=== PATIENT | male | born 1980 | race Caucasian/White ===

== ENCOUNTER 2024-02-25 08:46 | Emergency (ER) | payer OTHER ==
--- NOTE | 2024-02-25 08:48 | ERPHSYRPT ---
- History of Present Illness Time Seen by Provider: 02/25/24 08:48 Source: patient Exam Limitations: no limitations Physician History: This is a 43-year-old white male patient who presents to the emergency department with complaint of right flank pain with radiation down into his right testicle. Patient stated he felt fine last evening and also felt fine this morning. The sensation of nausea came over him when the pain issues occurred. He has never felt anything like this before. He denies chest pain. He denies shortness of breath. Patient does not take medications chronically and he has no known drug allergies. He feels like he has to urinate but was unable to do so. Timing/Duration: today Severity: moderate Character of Deficits: none Baseline/Normal Cognition: alert oriented x 3 Current Cognition: alert oriented x 3 Associated Symptoms: denies symptoms, other (He denies dizziness when I evaluated him. It is more of a nausea feeling associated with the pain) Allergies/Adverse Reactions: No Known Drug Allergies Allergy (Verified 02/25/24 08:56) Travel Risk - International Travel Have you traveled outside of the country in past 3 weeks: No - Emerging Infectious Disease Are you exhibiting symptoms associated with any current EIDs: No - Review of Systems Constitutional: No Symptoms Eyes: No Symptoms Ears, Nose, & Throat: No Symptoms Respiratory: No Symptoms Cardiac: No Symptoms Abdominal/Gastrointestinal: Nausea, Appetite Changes, No Abdominal Pain, No Vomiting, No Diarrhea Genitourinary Symptoms: No Symptoms, Flank Pain (Right), Testicle Pain (Right), Other (Difficulty urinating) Musculoskeletal: No Symptoms Skin: No Symptoms Neurological: Irritability Psychological: No Symptoms Endocrine: No Symptoms Hematologic/Lymphatic: No Symptoms Immunological/Allergic: No Symptoms All Other Systems: Reviewed and Negative - Past Medical History Pertinent Past Medical History: No - Nursing Vital Signs Nursing Vital Signs: Initial Vital Signs Temperature 97.1 F 02/25/24 08:51 Pulse Rate 59 L 02/25/24 08:51 Respiratory Rate 20 02/25/24 08:51 Blood Pressure 122/83 02/25/24 08:51 O2 Sat by Pulse Oximetry 100 02/25/24 08:51 Pain Scale Pain Intensity 0 - Tom Coma Scale Best Eye Response ([place]): (4) open spontaneously Best Verbal Response ([place]): (5) oriented Best Motor Response ([place]): (6) obeys commands [place] Total: 15 - Physical Exam General Appearance: mild distress, alert, thin Eye Exam: bilateral eye: normal inspection, PERRL, EOMI Ears, Nose, Throat Exam: normal ENT inspection, moist mucous membranes Neck Exam: normal inspection, non-tender, supple, full range of motion Respiratory: normal breath sounds, lungs clear, airway intact, No chest tenderness, No respiratory distress Cardiovascular: regular rate/rhythm, normal heart sounds, normal peripheral pulses Gastrointestinal: soft, normal bowel sounds, No tenderness Rectal Exam: not done Back Exam: normal inspection, normal range of motion, CVA tenderness (Right side), No vertebral tenderness Extremity Exam: normal inspection, normal range of motion, pelvis stable Mental Status: alert, oriented x 3, 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 No comparison twelve-lead EKG available) Ordered Tests: Active Orders 24 hr Category Date Time Status Clean Catch Urine Specimen STAT Care 02/25/24 09:03 Active EKG-ER Only STAT Care 02/25/24 09:03 Active IV Insertion STAT Care 02/25/24 09:03 Active ABDOMEN AND PELVIS W/0 CONTRAS [CT] Stat Exams 02/25/24 09:03 Completed CBC W DIFF Stat Lab 02/25/24 09:08 Completed CMP Stat Lab 02/25/24 09:08 Completed CULTURE,URINE Stat Lab 02/25/24 11:26 Received TROPONIN Q4H Lab 02/25/24 09:08 Completed TROPONIN Q4H Lab 02/25/24 13:15 Ordered TROPONIN Q4H Lab 02/25/24 17:15 Ordered UA W/RFX UR CULTURE Stat Lab 02/25/24 11:26 Completed Urine Triage Profile Stat Lab 02/25/24 11:26 Received Medication Summary Discontinued Medications Generic Name Dose Route Start Last Admin Trade Name Freq PRN Reason Stop Dose Admin Hydromorphone HCl 1 mg 02/25/24 09:23 02/25/24 09:50 Hydromorphone 1 Mg/1ml Inj IV 02/25/24 09:24 1 mg STAT ONE Administration Hydromorphone HCl Confirm 02/25/24 09:50 Hydromorphone 1 Mg/1ml Inj Administered 02/25/24 09:51 Dose 1 mg .ROUTE .STK-MED ONE Sodium Chloride 1,000 mls @ 999 mls/hr 02/25/24 09:03 02/25/24 10:35 Sodium Chloride 0.9% 1000 Ml IV 02/25/24 10:03 Infused .Q1H1M STA Infusion Sodium Chloride Confirm 02/25/24 09:15 Sodium Chloride 0.9% 1000 Ml Administered 02/25/24 09:16 Dose 1,000 mls @ ud .ROUTE .STK-MED ONE Ketorolac Tromethamine 30 mg 02/25/24 09:04 02/25/24 09:17 Ketorolac Tromethamine 30 Mg/Ml Inj IV 02/25/24 09:05 30 mg STAT ONE Administration Ketorolac Tromethamine Confirm 02/25/24 09:15 Ketorolac Tromethamine 30 Mg/Ml Inj Administered 02/25/24 09:16 Dose 30 mg .ROUTE .STK-MED ONE Ondansetron HCl 4 mg 02/25/24 09:03 02/25/24 09:17 Ondansetron Hcl 4 Mg/2 Ml Vial IV 02/25/24 09:04 4 mg STAT ONE Administration Ondansetron HCl Confirm 02/25/24 09:15 Ondansetron Hcl 4 Mg/2 Ml Vial Administered 02/25/24 09:16 Dose 4 mg .ROUTE .STK-MED ONE Tamsulosin HCl 0.4 mg 02/25/24 10:37 02/25/24 10:43 Tamsulosin Hcl 0.4 Mg Cap PO 02/25/24 10:38 0.4 mg STAT ONE Administration Tamsulosin HCl Confirm 02/25/24 10:43 Tamsulosin Hcl 0.4 Mg Cap Administered 02/25/24 10:44 Dose 0.4 mg .ROUTE .STK-MED ONE Lab/Rad Data: Laboratory Result Diagrams 02/25/24 09:08 02/25/24 09:08 Laboratory Results 02/25/24 02/25/24 02/25/24 Range/Units 11:26 09:08 09:08 WBC (4.0-10.5) x10^3/uL RBC (4.1-5.6) x10^6/uL Hgb (12.5-18.0) g/dL Hct (42-50) % MCV (78-100) fL MCH (26-32) pg MCHC (32-36) g/dL RDW (11.5-14.0) % Plt Count (150-450) x10^3/uL MPV (7.5-11.0) fL Gran % (36.0-66.0) % Immature Gran % (Auto) (0.00-0.4) % Nucleat RBC Rel Count (0.00-0.1) % Eos # (Auto) (0-0.5) x10^3/uL Immature Gran # (Auto) (0.00-0.03) x10^3u/L Absolute Lymphs (auto) (1.0-4.6) x10^3/uL Absolute Monos (auto) (0.0-1.3) x10^3/uL Absolute Nucleated RBC (0.00-0.01) x10^3u/L Lymphocytes % (24.0-44.0) % Monocytes % (0.0-12.0) % Eosinophils % (0.00-5.0) % Basophils % (0.0-0.4) % Absolute Granulocytes (1.4-6.9) x10^3/uL Basophils # (0-0.4) x10^3/uL Sodium 141 (135-145) mmol/L Potassium 3.7 (3.5-5.1) mmol/L Chloride 107 (98-107) mmol/L Carbon Dioxide 25 (22-30) mmol/L Anion Gap 12.2 (5-15) MEQ/L BUN 19 (9-20) mg/dL Creatinine 1.08 (0.66-1.25) mg/dL Estimated GFR 87.3 ML/MIN Glucose 120 H (74-106) mg/dL Calcium 9.4 (8.4-10.2) mg/dL Total Bilirubin 0.80 (0.2-1.3) mg/dL AST 32 (17-59) U/L ALT 54 H (0-50) U/L Alkaline Phosphatase 104 (38-126) U/L Troponin I < 0.012 (0.000-0.033) ng/mL Serum Total Protein 8.0 (6.3-8.2) g/dL Albumin 4.5 (3.5-5.0) g/dL Urine Color Dark Yellow (Yellow) Urine Appearance Cloudy A (Clear) Urine pH 6.5 (4.6-8.0) Ur Specific [place] 1.025 (1.005-1.030) Urine Protein Trace A (Negative) Urine Glucose (UA) Negative (Negative) mg/dL Urine Ketones 15 A (Negative) Urine Blood Large A (Negative) Urine Nitrite Negative (Negative) Urine Bilirubin Negative (Negative) Urine Urobilinogen 1.0 A (0.2) mg/dL Ur Leukocyte Esterase Trace A (Negative) U Hyaline Cast (Auto) NONE SEEN (0-2) /LPF Urine Microscopic RBC 51-100 A (0-5) /HPF Urine Microscopic WBC 6-10 A (0-5) /HPF Ur Epithelial Cells None Seen (None Seen) /HPF Urine Bacteria None Seen (None Seen) /HPF Urine Culture Reflexed YES (NO) 02/25/24 Range/Units 09:08 WBC 4.5 (4.0-10.5) x10^3/uL RBC 4.91 (4.1-5.6) x10^6/uL Hgb 14.9 (12.5-18.0) g/dL Hct 43.8 (42-50) % MCV 89.2 (78-100) fL MCH 30.3 (26-32) pg MCHC 34.0 (32-36) g/dL RDW 12.5 (11.5-14.0) % Plt Count 325 (150-450) x10^3/uL MPV 10.2 (7.5-11.0) fL Gran % 52.5 (36.0-66.0) % Immature Gran % (Auto) 0.2 (0.00-0.4) % Nucleat RBC Rel Count 0.0 (0.00-0.1) % Eos # (Auto) 0.10 (0-0.5) x10^3/uL Immature Gran # (Auto) 0.01 (0.00-0.03) x10^3u/L Absolute Lymphs (auto) 1.69 (1.0-4.6) x10^3/uL Absolute Monos (auto) 0.32 (0.0-1.3) x10^3/uL Absolute Nucleated RBC 0.00 (0.00-0.01) x10^3u/L Lymphocytes % 37.6 (24.0-44.0) % Monocytes % 7.1 (0.0-12.0) % Eosinophils % 2.2 (0.00-5.0) % Basophils % 0.4 (0.0-0.4) % Absolute Granulocytes 2.36 (1.4-6.9) x10^3/uL Basophils # 0.02 (0-0.4) x10^3/uL Sodium (135-145) mmol/L Potassium (3.5-5.1) mmol/L Chloride (98-107) mmol/L Carbon Dioxide (22-30) mmol/L Anion Gap (5-15) MEQ/L BUN (9-20) mg/dL Creatinine (0.66-1.25) mg/dL Estimated GFR ML/MIN Glucose (74-106) mg/dL Calcium (8.4-10.2) mg/dL Total Bilirubin (0.2-1.3) mg/dL AST (17-59) U/L ALT (0-50) U/L Alkaline Phosphatase (38-126) U/L Troponin I (0.000-0.033) ng/mL Serum Total Protein (6.3-8.2) g/dL Albumin (3.5-5.0) g/dL Urine Color (Yellow) Urine Appearance (Clear) Urine pH (4.6-8.0) Ur Specific [place] (1.005-1.030) Urine Protein (Negative) Urine Glucose (UA) (Negative) mg/dL Urine Ketones (Negative) Urine Blood (Negative) Urine Nitrite (Negative) Urine Bilirubin (Negative) Urine Urobilinogen (0.2) mg/dL Ur Leukocyte Esterase (Negative) U Hyaline Cast (Auto) (0-2) /LPF Urine Microscopic RBC (0-5) /HPF Urine Microscopic WBC (0-5) /HPF Ur Epithelial Cells (None Seen) /HPF Urine Bacteria (None Seen) /HPF Urine Culture Reflexed (NO) - Progress Progress: improved, re-examined Progress Note: 02/25/24 09:30 My medical decision making and assignment of this patient's medical issue of mo derate complexity is based on review of the patient's past medical history, review of patient's medication list, review of patient drug allergy list, history present illness and physical findings on examination. The workup in this patient includes placement of intravenous line, infusion of normal saline solution, infusion of Toradol 30 mg intravenously, infusion of 4 mg intravenous Zofran, infusion 1 mg intravenous Dilaudid, twelve-lead EKG, troponin level, CBC, CMP, urinalysis. Differential diagnosis includes dysrhythmia, myocardial infarction, urinary tract infection, ureterolithiasis, dehydration 02/25/24 10:[address] scan of the abdomen pelvis was interpreted by the radiologist and Nilson r eviewed the interpretation. The impression states 6 to 7 mm right UVJ calculus producing obstructive uropathy including prominent right ureter and mild hydronephrosis. Additionally, there is a nonobstructing left renal micro calculus. 02/25/24 11:07 We have contacted the urologist. The office has the patient's contact information and will call the patient today to make arrangements for follow-up appointment. They will provide him with a date and time of his appointment. 02/25/24 11:39 I interpreted the patient's laboratory data workup results. Patient does have, as expected, significant hematuria. He also has a urinary tract infection. We will remotely send a prescription of Keflex to his pharmacy. The remainder of his laboratory data workup results show no significant acute or emergent findings. Counseled pt/family regarding: lab results, diagnosis, need for follow-up, rad results Medical Desision Making - Independent Historian Additional History obtained from: Spouse - Diagnostic Testing Diagnostic test were ordered, analyzed, and reviewed by me: Yes Radiological Interpretation: Reviewed by me, Teleradiologist Report - Risk of complications The pt has a mod risk of morbidity or mortality based on: Need for prescription drug management - Departure Departure Disposition: Home Clinical Impression: Right ureteral calculus, Obstructive uropathy, UTI (urinary tract infection) Condition: Stable Critical Care Time: No Referrals: DOCTOR,NO FAMILY [Primary Care Provider] - Follow up/PCP as directed Additional Instructions: Drink plenty of fluids. Take 600 mg ibuprofen orally every 8 hours with food for 5 days. Follow-up with the urologist at your scheduled appointment date and time. If symptoms worsen, go to the emergency room that has a urologist wind commissioning technician as discussed. Prescriptions: Hydrocodone/APAP 5/325 [[place] 5/325 mg] 1 each PO Q8H PRN PRN #8 tablet MDD 3 PRN Reason: Pain Tamsulosin HCl 0.4 mg [Flomax 0.4 MG] 0.4 mg PO DAILY #7 cap Cephalexin Mh 500 mg [Keflex 500 mg] 500 mg PO TID #21 cap
[2024-02-25 09:10] LABS: Absolute Neutrophil Ct (ANC) 2.36 x10^3/uL (1.4-6.9); BASOPHIL % 0.4 % (0.0-0.4); Basophil (Absolute #) 0.02 x10^3/uL (0-0.4); Eosinophil % 2.2 % (0.00-5.0); Hematocrit 43.8 % (42-50); Hemoglobin 14.9 g/dL (12.5-18.0); IMMATURE GRAN # 0.01 x10^3u/L (0.00-0.03); IMMATURE GRAN % 0.2 % (0.00-0.4); Lymphocyte (Absolute #) 1.69 x10^3/uL (1.0-4.6); Lymphocytes % 37.6 % (24.0-44.0); Mean Cell Volume 89.2 fL (78-100); Mean Corpuscular Hemoglobin 30.3 pg (26-32); Mean Platelet Volume 10.2 fL (7.5-11.0); Monocyte (Absolute #) 0.32 x10^3/uL (0.0-1.3); Monocytes % 7.1 % (0.0-12.0); Neutrophil % 52.5 % (36.0-66.0); Platelet Count 325 x10^3/uL (150-450); Red Blood Count 4.91 x10^6/uL (4.1-5.6); Red Cell Distribution Width 12.5 % (11.5-14.0); White Blood Count 4.5 x10^3/uL (4.0-10.5)
[2024-02-25] MEDS ORDERED: TORAdol 30 mg Injection ONE (09:15)
[2024-02-25] MEDS ORDERED: Zofran 4 MG/2 ML VIAL ONE (09:15)
[2024-02-25] MEDS ORDERED: Sodium Chloride 0.9% 1000 ML 1,000 ML ONE (09:15)
[2024-02-25] MEDS: Sodium Chloride 0.9% 1000 ML 1,000 ML IV STA (09:16)
[2024-02-25] MEDS: Zofran 4 MG/2 ML VIAL IV ONE (09:17)
[2024-02-25] MEDS: TORAdol 30 mg Injection IV ONE (09:17)
[2024-02-25 09:23] LABS: ALBUMIN 4.5 g/dL (3.5-5.0); ANION GAP 12.2 MEQ/L (5-15); BILIRUBIN,TOTAL 0.8 mg/dL (0.2-1.3); Calcium 9.4 mg/dL (8.4-10.2); Creatinine 1 1.08 mg/dL (0.66-1.25); EST GLOMERULAR FILTRATION RATE 87.3 ML/MIN; Potassium 3.7 mmol/L (3.5-5.1)
[2024-02-25] MEDS: Hydromorphone 1 mg/ml Injection IV ONE (09:50)
[2024-02-25] MEDS ORDERED: Hydromorphone 1 mg/ml Injection ONE (09:50)
--- NOTE | 2024-02-25 10:20 | XRAY ---
Indication: Flank/testicle pain. Multiple contiguous axial images obtained through the abdomen and pelvis without contrast using renal stone protocol. Comparison: None Lung bases demonstrates minimal dependent atelectasis. Heart not enlarged. Small hiatal hernia. 6-7 mm right UVJ calculus. Proximal right ureter is prominent up to 8mm along with mild hydronephrosis consistent with obstructive uropathy no free fluid/air. Left kidney demonstrates nonobstructing 2 mm calculus. Noncontrasted stomach and bowel loops appear nonobstructed. Appendectomy reported. Remaining liver, gallbladder, pancreas, spleen, adrenal glands, bladder, and aorta are unremarkable for noncontrast exam. Osseous structures intact. Tiny fatty left inguinal hernia. Impression: 1. 6-7 mm right UVJ calculus producing obstructive uropathy as detailed. Additional nonobstructing left renal micro-calculus. 2. Incidental tiny fatty left inguinal hernia.
[2024-02-25] MEDS: Flomax 0.4 MG PO ONE (10:43)
[2024-02-25] MEDS ORDERED: Flomax 0.4 MG ONE (10:43)
[2024-02-25 11:34] LABS: Appearance Cloudy (Clear); Bacteria None Seen /HPF (None Seen); Bilirubin Negative (Negative); Blood Large (Negative); Epithelial Cells None Seen /HPF (None Seen); Glucose, Urine Negative (Negative); Hyaline Casts NONE SEEN /LPF (0-2); Ketones 15 (Negative); Leukocyte Esterase Trace (Negative); Nitrite Negative (Negative); Ph 6.5 (4.6-8.0); Protein,Urine Dip Trace (Negative); RBC 51-100 /HPF (0-5); Specific Gravity 1.025 (1.005-1.030)
[2024-02-25 11:36] LABS: ADD URINE CULTURE? YES (NO)
[2024-02-25 11:49] LABS: Amphetamine,Urine NEGATIVE (NEGATIVE); Barbiturate,Urine NEGATIVE (NEGATIVE); Benzodiazepine,Urine NEGATIVE (NEGATIVE); Cocaine,Urine NEGATIVE (NEGATIVE); Methadone,Urine NEGATIVE (NEGATIVE); Opiate,Urine POSITIVE (NEGATIVE); PCP,Urine NEGATIVE (NEGATIVE); THC,Urine NEGATIVE (NEGATIVE)
[2024-02-25 12:03] VITALS: BP 114/75; PULSE 60; RESP 20; TEMP 97.8; O2SAT 98
== END 2024-02-25 12:12 | disposition home or self-care (01) ==
LOC: ED 08:46
DX: N13.2 Hydronephrosis with renal and ureteral calculous obstruction (principal); N39.0 Urinary tract infection, site not specified; R10.9 Unspecified abdominal pain; R11.0 Nausea; Z79.891 Long term (current) use of opiate analgesic; Z79.899 Other long term (current) drug therapy
CPT/HCPCS: 36000; 36415; 74176; 80053; 80307; 81001; 84484; 85025; 87086; 93005; 96360; 96374; 96375; 99284; J1170; J1885; J2405; A9270-GY